=== PATIENT | male | born 1985 ===

== ENCOUNTER 2018-03-02 18:02 | Emergency (ER) | payer OTHER, SELFPAY ==
[2018-03-02 18:16] VITALS: BMI 28.5
--- NOTE | 2018-03-02 18:20 | ED PDOC ---
Arrival/HPI - General Chief Complaint: Dental Pain Time Seen by Provider: 03/02/18 18:11 Historian: Patient - History of Present Illness Time/Duration: > week Symptom Onset: Gradual Symptom Course: Improving Severity Level: Mild Activities at Onset: Rest Associated Symptoms (Text): 03/02/18 18:17 Patient complains of approximately a two-year history of cracked left upper posterior molars. He states that last week he developed pain and swelling in his face. He took some leftover amoxicillin and the pain and swelling has since resolved. He is concerned because his gumline is still swollen. He has not seen the dentist. He does not need pain medication. Past Medical History - Psychiatric Hx Depression: No Hx Emotional Abuse: No Hx Physical Abuse: No Hx Substance Use: Yes - Suicidal Assessment Feels Threatened In Home Enviroment: No Family/Social History - Physician Review Nursing Documentation Reviewed: Yes Family/Social History: Unknown Family HX Smoking Status: Light Smoker < 10 Cigarettes Daily Hx Alcohol Use: Yes Frequency of alcohol use: Socially Hx Substance Use: Yes (marijuana) Hx Substance Use Treatment: No Allergies/Home Meds Allergies/Adverse Reactions: Allergies No Known Allergies Allergy (Verified 03/02/18 18:16) Review of Systems - Physician Review All systems were reviewed & negative as marked: Yes - Review of Systems ENT: Normal Respiratory: Normal Cardiovascular: Normal Physical Exam Temperature: Afebrile Blood Pressure: Normal Pulse: Regular Respiratory Rate: Normal Appearance: Positive for: Well-Appearing, Non-Toxic, Comfortable Pain Distress: None Mental Status: Positive for: Alert and Oriented X 3 - Systems Exam Head: Present: Atraumatic, Normocephalic Pupils: Present: PERRL Extroacular Muscles: Present: EOMI Conjunctiva: Present: Normal Ears: Present: NORMAL TM, Normal Canal. No: Erythema, TM Bulging Mouth: Present: Moist Mucous Membranes, Other (Left upper posterior last molar and first and second molar broken at the gumline with erythema swelling and a small lateral abscess. There is no facial swelling edema or erythema) Pharnyx: No: ERYTHEMA, EXUDATE, TONSILS ENLARGED, Peritonsilar Swelling, Soft Palate/Uvular Edema Respiratory/Chest: Present: Clear to Auscultation, Good Air Exchange. No: Respiratory Distress, Accessory Muscle Use Cardiovascular: Present: Regular Rate and Rhythm, Normal S1, S2. No: Murmurs Medical Decision Making ED Course and Treatment: 03/02/18 18:20 Patient was instructed that he will need to follow-up with a dentist for extraction. Follow up in the emergency department as needed. Prescription for amoxicillin given. Disposition/Present on Arrival - Present on Arrival Any Indicators Present on Arrival: No History of DVT/PE: No History of Uncontrolled Diabetes: No Urinary Catheter: No History of Decub. Ulcer: No History Surgical Site Infection Following: None - Disposition Have Diagnosis and Disposition been Completed?: Yes Diagnosis: Abscessed tooth Disposition: HOME/ ROUTINE Disposition Time: 18:20 Patient Plan: Discharge Condition: GOOD Discharge Instructions (ExitCare): Tooth Abscess (DC) Additional Instructions: Follow-up with the dentist as soon as possible. Follow-up in the emergency department as needed. Prescriptions: Amoxicillin [Amoxil 250 mg Cap] 250 mg PO TID #21 cap Forms: [employer] (Sinhala)
[2018-03-02 18:29] VITALS: BP 131/78; PULSE 67; RESP 18; TEMP 98.3; O2SAT 95
== END 2018-03-02 18:55 | disposition home or self-care (01) ==
LOC: ED 18:02
DX: K04.7 Periapical abscess without sinus (principal); F17.210 Nicotine dependence, cigarettes, uncomplicated